=== PATIENT | male | born 1970 | race Asian ===

== ENCOUNTER 2016-04-22 23:36 | Emergency (ER) | payer OTHER ==
--- NOTE | 2016-04-22 23:40 | PDOC ---
History of Present Illness - General Chief Complaint: Pain, Acute Stated Complaint: PAIN UNDER LEFT ARM Time Seen by Provider: 04/22/16 23:38 History Source: Patient Exam Limitations: No Limitations - History of Present Illness Initial Comments: 04/22/16 23:52 This is a 45-year-old male who is had approximately 12 hours now of constant left-sided axilla pain. Patient said pain is mild. Patient said there is no associated shortness of breath, nausea, diaphoresis. Patient said it doesn't worse when he moves or uses his arm. Patient denies history of similar pain in the past. Patient said he has been under a lot of stress and he is concerned that maybe his heart. Patient does have a family history of an uncle who had some heart problems in his mid to late 50s but patient is not sure what those heart problems were. Patient does not smoke, does not take any cocaine or illegal drugs. Patient did take 2 aspirins for the pain with some improvement in the symptoms. PAST MEDICAL HISTORY: no significant history PAST SURGICAL HISTORY: no significant history FAMILY HISTORY: no pertinant history SOCIAL HISTORY: Pt lives with family and is employed. MEDICATIONS: reviewed ALLERGIES: As per nursing notes Review of Systems General: No fevers or chills, no weakness, no weight loss HEENT: No change in vision. No sore throat,. No ear pain CardioVascular: No chest pain or shortness of breath, left axilla pain Respiratory:No cough, or wheezing. Gastrointestinal: no nausea, vomitting, diarrhea or constipation, No rectal bleeding Genitourinary: No dysuria, hematuria, or frequency Musculoskeletal: No joint or muscle pain or swelling Neurologic: No headache, vertigo, dizziness or loss of consciousness Psychiatric: nor depression Skin: No rashes or easy bruising Endocrine: no increased thirst or abnormal weight change Allergic: no skin or latex allergy All other systems reviewed and normal Exam: General: Well-nourished well-developed individual, no acute distress HEENT: Throat: Normal, tonsils normal, no erythema or exudate Neck: Supple, no meningeal signs, no lymphadenopathy Eyes::Pupils equal reactive and round, extraocular motion intact Chest: Nontender to palpation Cardiac: S1-S2 normal, regular rate and rhythm, no murmurs rubs or gallops Respiratory: Lungs clear to auscultation bilateral Abdomen: Soft, nondistended, normal bowel sounds, nontender to palpation diffusely Extremities: Warm, dry, no cyanosis, clubbing, or edema Skin: No rashes Neuro: Alert and oriented x3, nonfocal exam, grossly intact, normal gait Psych: Normal mood and affect 04/23/16 00:03 EKG shows normal sinus rhythm at a rate is 62, normal intervals no acute ST-T wave changes normal EKG 04/23/16 01:30 Assessment and plan: This is a 45-year-old male who comes in complaining of left axilla pain that has been constant for approximately 12 hours prior to arrival. Patient had a cardiogram was normal. Patient had a troponin that was negative and it hurts for 2. Recommended the patient follow up with his primary care doctor for a outpatient stress test and patient was discharged home. Past History - Past Medical History Allergies/Adverse Reactions: Allergies Allergy/AdvReac Type Severity Reaction Status Date / Time No Known Allergies Allergy Verified 04/23/16 00:09 Home Medications: Ambulatory Orders NK [No Known Home Medication] 04/23/16 Heart Score/ECG Review - History History: Slightly suspicious - Electrocardiogram EKG: Normal - Age Age: 45-65 - Risk Factors Risk Factors Heart Score: Yes Positive family hx of cardiac disease Based on the list above the patient has:: 1-2 risk factors - Troponin Troponin: </= normal limit - Score Heart Score - Total: 2 (low risk ) *DC/Admit/Observation/Transfer Diagnosis at time of Disposition: Left axillary pain - Discharge Dispostion Disposition: HOME Condition at time of disposition: Stable Admit: No - Patient Instructions Additional Instructions: Tylenol or Motrin as needed for pain. It is important that you follow-up with your primary care doctor for an outpatient stress test. Return to the emergency department immediately with ANY new, persistent or worsening symptoms. Continue any medications as previously prescribed by your physician. You should follow up with your primary doctor as soon as possible regarding today's emergency department visit. . Please make sure your doctor reviews the results of your emergency evaluation. Thank you for coming to the Emergency Department today for your care. It was a pleasure to see you today. Please note that your evaluation is INCOMPLETE until you follow-up with your doctor.
[2016-04-23 00:16] VITALS: BP 133/80; PULSE 75; TEMP 97.9; BMI 24.2
[2016-04-23 01:13] LABS: TROPONIN I < 0.02 ng/ml (0.00-0.05)
--- NOTE | 2016-04-24 13:44 | EKG ---
Test Reason : Blood Pressure : / mmHG Vent. Rate : 062 BPM Atrial Rate : 062 BPM P-R Int : 168 ms QRS Dur : 108 ms QT Int : 366 ms P-R-T Axes : 045 -07 016 degrees QTc Int : 371 ms NORMAL SINUS RHYTHM NORMAL ECG NO PREVIOUS ECGS AVAILABLE Confirmed by BRADEN RIZZO MD ([id number]) on 04/24/2016 1:44:26 PM Referred By: MD ASHLEY Confirmed By:BRADEN RIZZO MD
== END 2016-04-23 01:28 | disposition home or self-care (01) ==
LOC: FER 23:36
DX: M79.622 Pain in left upper arm (principal); Z82.49 Family history of ischemic heart disease and other diseases of the circulatory system
CPT/HCPCS: 36415; 82550; 84484; 93005; 99281-25

== ENCOUNTER 2016-08-24 18:33 | Emergency (ER) | payer OTHER ==
[2016-08-24 18:43] VITALS: BMI 24.2
[2016-08-24] MEDS ORDERED: KETOROLAC TROMETHAMINE 30 MG/1 ML VIAL IVPUSH ONE (19:48)
[2016-08-24] MEDS ORDERED: SODIUM CHLORIDE 0.9% 1000 ML INFUS.BAG IV ONE (19:48)
[2016-08-24] MEDS ORDERED: KETOROLAC TROMETHAMINE 30 MG/1 ML VIAL ONE (20:10)
[2016-08-24 20:38] LABS: BASOPHIL 0.5 % (0-2.0); EOSINOPHIL 3.1 % (0-4.5); MCH 26.6 pg (25.7-33.7); MCHC 32.3 g/dl (32.0-35.9); MEAN CELL VOLUME 82.4 fl (80-96); MEAN PLT VOLUME 9.5 fl (7.5-11.1); NEUTROPHILS 57.9 % (42.8-82.8); PLATELET COUNT 191 K/MM3 (134-434); RDW 13.2 % (11.9-15.9); WHITE BLOOD COUNT 7.8 K/mm3 (4.0-10.0)
[2016-08-24 20:41] LABS: URINE APPEARANCE CLEAR; URINE BILIRUBIN NEGATIVE (NEGATIVE); URINE BLOOD NEGATIVE (NEGATIVE); URINE COLOR STRAW; URINE GLUCOSE (UA) NEGATIVE (NEGATIVE); URINE KETONE NEGATIVE (NEGATIVE); URINE LEUK ESTERASE NEGATIVE (NEGATIVE); URINE NITRITE NEGATIVE (NEGATIVE); URINE PROTEIN NEGATIVE (NEGATIVE); URINE UROBILINOGEN NEGATIVE E.U./dl (0.2-1.0)
[2016-08-24 20:57] LABS: ANION GAP 7 (8-16); BILIRUBIN,TOTAL 0.2 mg/dL (0.2-1.0); CALCIUM 8.9 mg/dL (8.5-10.1); CO2 31 mmol/L (21-32); COCKROFT - GAULT 140.21; CREATININE 0.7 mg/dL (0.7-1.3); GLUCOSE,RANDOM 102 mg/dL (74-106); SGOT/AST 25 U/L (15-37); SGPT/ALT 37 U/L (12-78); TOT PROT 7.2 g/dl (6.4-8.2)
[2016-08-24 20:58] LABS: ALK PHOS 89 U/L (45-117)
--- NOTE | 2016-08-24 22:28 | PDOC ---
History of Present Illness - General Chief Complaint: Pain Stated Complaint: KIDNEY PAIN/BOTH LEGS PAIN Time Seen by Provider: 08/24/16 19:38 History Source: Patient Exam Limitations: No Limitations - History of Present Illness Initial Comments: 08/24/16 22:26 Patient is a 45 year old male with h/o kidney stone, hernia repair c/o b/l lower back pain that radiates to b/l anterior thigh x 2 days. States pain 7/10 , pressure pain which is worse went the AC is on in the house. Pain is relieved with advil. Denies bowel or bladder incontinence. Thinks the pain is due to his kidney stone because he has had this pain is the past not this back and his urine is dark and chills. Denies fever, n/v/d PMD: Dr. Gillespie PMHX: as above PSOCHX; neg etoh, cig, drug PFamHx: noncontributory ALL: NKDA GENERAL/CONSTITUTIONAL: [No fever or chills. No weakness. No weight change.] HEAD, EYES, EARS, NOSE AND THROAT: [No change in vision. No ear pain or discharge. No sore throat.] CARDIOVASCULAR: [No chest pain or shortness of breath.] RESPIRATORY: [No cough, wheezing, or hemoptysis.] GASTROINTESTINAL: [No nausea, vomiting, diarrhea or constipation. No rectal bleeding.] GENITOURINARY: [No dysuria, frequency, or change in urination, (+) Flank pain.] MUSCULOSKELETAL: [No joint or muscle swelling or pain. No neck or back pain.] SKIN AND BREASTS: [No rash or easy bruising.] NEUROLOGIC: [No headache, vertigo, loss of consciousness, or loss of sensation.] PSYCHIATRIC: [No depression or anxiety.] ENDOCRINE: [No increased thirst. No abnormal weight change.] HEMATOLOGIC/LYMPHATIC: [No anemia, easy bleeding, or history of blood clots.] ALLERGIC/IMMUNOLOGIC: [No hives or skin allergy. No latex allergy.] GENERAL: [The patient is awake, alert, and fully oriented, in no acute distress. ] HEAD: [Normal with no signs of trauma.] EYES: [Pupils equal, round and reactive to light, extraocular movements intact, sclera anicteric, conjunctiva clear.] ENT: [Ears normal, nares patent, oropharynx clear without exudates. Moist mucous membranes.] NECK: [Normal range of motion, supple without lymphadenopathy, JVD, or masses.] LUNGS: [Breath sounds equal, clear to auscultation bilaterally. No wheezes, and no crackles.] HEART: [Regular rate and rhythm, normal S1 and S2 without murmur, rub.] ABDOMEN: [Soft, nontender, normoactive bowel sounds. No guarding, no rebound. No masses., (-) CVAT] BACK: mild tenderness b/l Lower back EXTREMITIES: [Normal range of motion, no edema. No clubbing or cyanosis. No cords, erythema, or tenderness.] NEUROLOGICAL: [Cranial nerves II through XII grossly intact. Normal speech, normal gait.] PSYCH: [Normal mood, normal affect.] SKIN: [Warm, Dry, normal turgor, no rashes or lesions noted.] Past History - Past Medical History Allergies/Adverse Reactions: Allergies Allergy/AdvReac Type Severity Reaction Status Date / Time No Known Allergies Allergy Verified 08/24/16 18:43 Home Medications: Ambulatory Orders NK [No Known Home Medication] 04/23/16 Other medical history: NONE - Surgical History Abdominal Surgery: Yes (HERNIA) - Psycho/Social/Smoking Cessation Hx Anxiety: No Suicidal Ideation: No Smoking History: Never smoked Have you smoked in the past 12 months: No Hx Alcohol Use: No Drug/Substance Use Hx: No Substance Use Type: None *Physical Exam - Vital Signs Last Vital Signs Temp Pulse Resp BP Pulse Ox 98.1 F 66 20 144/79 100 08/24/16 18:41 08/24/16 18:41 08/24/16 18:41 08/24/16 18:41 08/24/16 18:41 ED Treatment Course - LABORATORY CBC & Chemistry Diagram: 08/24/16 19:50 08/24/16 19:50 - ADDITIONAL ORDERS Additional order review: Laboratory Results 08/24/16 08/24/16 19:50 19:50 Sodium 143 Potassium 4.1 Chloride 105 Carbon Dioxide 31 Anion Gap 7 L BUN 11 Creatinine 0.7 Creat Clearance w eGFR > 60 Random Glucose 102 Calcium 8.9 Total Bilirubin 0.2 AST 25 ALT 37 Alkaline Phosphatase 89 Creatine Kinase 102 Total Protein 7.2 Albumin 4.0 Urine Color Straw Urine Appearance Clear Urine pH 6.0 Urine Protein Negative Urine Glucose (UA) Negative Urine Ketones Negative Urine Blood Negative Urine Nitrite Negative Urine Bilirubin Negative Urine Urobilinogen Negative Ur Leukocyte Esterase Negative 08/24/16 19:50 RBC 5.35 MCV 82.4 MCHC 32.3 RDW 13.2 MPV 9.5 Neutrophils % 57.9 Lymphocytes % 32.3 Monocytes % 6.2 Eosinophils % 3.1 Basophils % 0.5 - Medications Given in the ED: ED Medications Discontinued Medications Generic Name Dose Route Start Last Admin Trade Name Elicia PRN Reason Stop Dose Admin Ketorolac Tromethamine 30 mg 08/24/16 19:48 08/24/16 20:11 Toradol Injection - IVPUSH 08/24/16 19:49 30 mg ONCE ONE Administration Sodium Chloride 1,000 ml 08/24/16 19:48 08/24/16 20:10 Normal Saline - IV 08/24/16 19:49 1,000 ml ONCE ONE Administration Medical Decision Making - Medical Decision Making 08/24/16 22:37 Patient is a 45 year old male with h/o kidney stone, hernia repair c/o b/l lower back pain that radiates to b/l anterior thigh x 2 days. Pain is most likely musculoskeletal pain will treat with Toradol 30mg IV IVF, Labs incl UA r/ o stone labs reviewed no acute finding d/w Dr. Leyla montilla L-Spine CT. will incl ct abd/pel r/o stone Patient pain is relieved with the toradol 08/25/16 01:03 Patient Name: Yonatan Hannah This is a preliminary report by imaging construction project assistant Exam: CT lumbar spine without contrast Images: 473 Clinical indication: Low back pain radiating to the legs. Findings: The bone mineralization appears normal. The vertebral body heights and disc spaces are preserved. Anatomic alignment of the lumbar spine is maintained. No significant disc herniation is identified. No other epidural process identified. No adenopathy collection or hematoma is seen in the paraspinal soft tissues. Again noted is a nonobstructing calculus in the lower pole left kidney. The visualized retroperitoneum and pelvic contents are otherwise unremarkable. Impression: No herniated disc identified in the lumbar spine. No other acute abnormality identified. THIS DOCUMENT HAS BEEN ELECTRONICALLY SIGNED Lino Erazo M.D. 00:44 KAILEE Singh Please call Imaging Valve Pipe Irrigator [phone] ([phone]) with questions Patient Name: Yonatan Hannah This is a preliminary report by imaging construction project assistant Exam: Noncontrast CT abdomen and pelvis Images: 501 Clinical indication : Flank pain. Rule out stone. Findings: The lung bases are clear. The upper abdominal viscera have a normal unenhanced appearance. The adrenal glands are unremarkable. The right kidney has a normal unenhanced appearance. A nonobstructing calculus in the lower pole of left kidney measures 6 mm in diameter. There is no hydronephrosis or hydroureter. The gastrointestinal tract does not appear obstructed. No thickened or dilated bowel is seen. The appendix is a normal appearance. There is no mesenteric infiltration. There is no free fluid. The patient appears to be status post inguinal hernia repair on the right with a plug mesh. The urinary bladder is nondistended. The prostate seminal vesicles are unremarkable. No abdominal or pelvic adenopathy is seen. No lytic or blastic destructive osseous lesions are seen. Impression: Nonobstructing calculus in the lower pole left kidney. No obstructing urinary tract calculi or evidence of urinary tract obstruction seen. No inflammatory process identified in the abdomen or pelvis. No abdominal mass, adenopathy or collection seen. THIS DOCUMENT HAS BEEN ELECTRONICALLY SIGNED Lino Erazo M.D. 08/25/2016 00:39 KAILEE Singh Please call Imaging [employer] Pipe Irrigator [phone] ( [phone]) with questions I discussed the physical exam findings, ancillary test results and final diagnoses with the patient. I answered all of the patient's questions. The patient was satisfied with the care received and felt comfortable with the discharge plan and treatment plan. The Patient agrees to follow up with the primary care physician within 24-72 hours. *DC/Admit/Observation/Transfer Diagnosis at time of Disposition: Back pain Qualifiers: Back pain location: low back pain Chronicity: acute Back pain laterality: bilateral Sciatica presence: without sciatica Qualified Code(s): M54.5 - Low back pain - Discharge Dispostion Disposition: HOME Condition at time of disposition: Stable - Referrals Referrals: Cece Gillespie MD [Primary Care Provider] - - Patient Instructions Printed Discharge Instructions: DI for Low Back Pain Additional Instructions: Your Discharge Instructions: You must call primary care physician within 24 hours to arrange follow-up. Return to the Emergency Department with any new, persistent or worsening symptoms, for fever, chills, SOB, dizziness or any other concerning changes that may occur.
[2016-08-25 02:03] VITALS: BP 140/80; PULSE 70; TEMP 98
== END 2016-08-25 02:03 | disposition home or self-care (01) ==
LOC: JER 18:33
PROC: 3E0333Z Introduction of Anti-inflammatory into Peripheral Vein, Percutaneous Approach (ICD-10-PCS; principal; 2016-08-24)
DX: M54.5 Low back pain (principal); M79.652 Pain in left thigh; M79.651 Pain in right thigh
CPT/HCPCS: 36415; 72131-TC; 74176-TC; 80053; 81003; 82550; 85025; 99283-25